=== PATIENT | male | born 1970 | race Caucasian/White ===

== ENCOUNTER 2019-05-05 12:39 | Emergency (ER) | payer SELFPAY ==
[~2019-05-05] VITALS: Ht 168.9 cm; Wt 117.0 kg
[2019-05-05 12:41] VITALS: BP 121/97
--- NOTE | 2019-05-05 12:48 | NUR ---
AMB TO BED 12
--- NOTE | 2019-05-05 12:54 | NUR ---
BIB SELF C/O LUMP NEAR UMBILICUS, WITH PAIN RADIATING TO RUQ ABDOMEN X 3 DAYS, C/O COUGH X 1.5 WEEK. HX- UMBILICIAL HERNIA REPAIR 20 YEARS AGO. PATIENT STATES PAIN OF 8/10 AT THIS TIME. PATIENT POSITIONED FOR COMFORT; HOB ELEVATED; BEDRAILS UP X1; BED DOWN. ER MD MADE AWARE OF PT STATUS.
--- NOTE | 2019-05-05 13:57 | NUR ---
Patient being evaluated by DR ROD at bedside.
[2019-05-05 15:17] VITALS: BP 103/61
--- NOTE | 2019-05-05 15:18 | NUR ---
Patient discharged with v/s stable. Written and verbal after care instructions given and explained. Patient alert, oriented and verbalized understanding of instructions. Ambulatory with steady gait. All questions addressed prior to discharge. ID band removed. Patient advised to follow up with PMD. Rx of ALBUTEROL AND TESSALON PERLS given. Patient educated on indication of medication including possible reaction and side effects. Opportunity to ask questions provided and answered.
== END 2019-05-05 15:18 | disposition home or self-care (01) ==
LOC: MED 12:39
DX: R05 Cough (principal); R10.9 Unspecified abdominal pain; R19.7 Diarrhea, unspecified; F17.210 Nicotine dependence, cigarettes, uncomplicated; Z98.890 Other specified postprocedural states; Z71.6 Tobacco abuse counseling
CPT/HCPCS: 71045; 99283; Q0092